=== PATIENT | male | born 1960 | race Caucasian/White ===

== ENCOUNTER 2018-09-13 13:16 | Emergency (ER) | payer BC ==
[2018-09-13 13:32] VITALS: BP 138/88
--- NOTE | 2018-09-13 13:51 | UC ---
Hand/Wrist HPI - HPI Summary HPI Summary: 58-year-old male presents with injury to his left middle finger. States he was using the finger to scrape some drywall putty off the floor and felt a sudden pop in the finger and since has not been able to fully extend the distal part of his finger. Mild pain especially with flexion. Denies numbness or tingling. - History Of Current Complaint Chief Complaint: UCUpperExtremity Stated Complaint: LEFT MIDDLE FINGER INJURY Time Seen by Provider: 09/13/18 13:31 Hx Obtained From: Patient Pain Intensity: 2 - Allergies/Home Medications Allergies/Adverse Reactions: Allergies Allergy/AdvReac Type Severity Reaction Status Date / Time No Known Allergies Allergy Verified 09/13/18 13:27 Home Medications: Home Medications Fluticasone-Salmeterol 250-50* [Advair Diskus 250-50*] 1 puff INH BID 09/13/18 [ History Confirmed 09/13/18] PMH/Surg Hx/FS Hx/Imm Hx Cardiovascular History: Hypertension Respiratory History: COPD GI/ History: Gastroesophageal Reflux - Surgical History Surgical History: Yes Surgery Procedure, Year, and Place: hernia repair at . tonsillectomy - Family History Known Family History: Positive: Non-Contributory - Social History Occupation: Employed Full-time Lives: With Family Alcohol Use: Occasionally Substance Use Type: Marijuana Smoking Status (MU): Never Smoked Tobacco - Immunization History Most Recent Influenza Vaccination: April 2015 Review of Systems All Other Systems Reviewed And Are Negative: Yes Constitutional: Positive: Negative Skin: Negative: Bruising Respiratory: Positive: Negative Cardiovascular: Positive: Negative Gastrointestinal: Positive: Negative Genitourinary: Positive: Negative Motor: Positive: Weakness Neurovascular: Negative: Decreased Sensation Musculoskeletal: Positive: Other: - See HPI Neurological: Positive: Negative Is Patient Immunocompromised?: No Physical Exam Triage Information Reviewed: Yes Appearance: Well-Appearing, No Pain Distress, Well-Nourished Vital Signs: Initial Vital Signs Temp 98.9 F 09/13/18 13:28 Pulse 91 09/13/18 13:28 Resp 16 09/13/18 13:28 BP 138/88 09/13/18 13:28 Pulse Ox 98 09/13/18 13:28 Vital Signs Reviewed: Yes Respiratory: Positive: Lungs clear, Normal breath sounds, No respiratory distress Cardiovascular: Positive: RRR, No Murmur, Pulses Normal, Brisk Capillary Refill Abdomen Description: Positive: Nontender, No Organomegaly, Soft. Negative: Distended, Guarding Bowel Sounds: Positive: Present Musculoskeletal: Positive: Other: - Tenderness over the dorsal aspect of the left middle finger over the extensor tendon. Unable to fully extend distal phalange. Pain with passive flexion of the distal phalange. No gross deformity. Sensation and circulation intact distally. Neurological: Positive: Alert, Muscle Tone Normal Skin: Negative: Significant Lesion(s) - Tenderness to the dorsal left finger over the extensor tendon. Patient unable to fully extend the distal phalange. Pain with passive flexion. No gross deformity. Sensation and circulation intact distally. Procedures - Splinting Left 3rd Digit Pre-Made Type: metal - finger splint Pre-Proc Neuro Vasc Exam: normal Post-Proc Neuro Vasc Exam: normal Diagnostics - Radiology No standard instances Radiology Interpretation Completed By: Radiologist Summary of Radiographic Findings: Patient Name: FRANCESCO LOBO Medical Record# : [id number]. Ordering Physician: Valentin Field NP Acct.#: [id number]. : 1960 Age: 58 Sex: M Location: [facility]. Exam Date: 133 ADM Status: REG ER. Order Information: FINGER LEFT MIDDLE. Accession Number: [id number]. CPT: 32539. INDICATION: Left middle finger injury. TECHNIQUE: 3 views of the left middle finger were obtained. FINDINGS: The finger is slightly flexed at the distal interphalangeal joint. The bones are. normal alignment. No fracture is seen. There is mild diffuse soft tissue swelling present. Joint spaces appear maintained. IMPRESSION: SOFT TISSUE SWELLING, NO FRACTURE IS SEEN. Hand/Wrist Course/Dx - Course Course Of Treatment: 58-year-old male presents with injury to his left middle finger. States he was using the finger to scrape some drywall putty off the floor and felt a sudden pop in the finger and since has not been able to fully extend the distal part of his finger. Mild pain especially with flexion. Denies numbness or tingling. Afebrile. VSS. Exam reveals adult male in no acute distress. Tenderness over the dorsal aspect of the left middle finger over the extensor tendon. Unable to fully extend distal phalange. Pain with passive flexion of the distal phalange. No gross deformity. Sensation and circulation intact distally. X-ray negative for fracture. Patient was placed in a finger splint. Recommending conservative treatment for flexor tendon injury. He is to follow up with orthopedic surgery within 5 days. - Differential Dx/Diagnosis Provider Diagnosis: Strain of extensor muscle, fascia and tendon of left middle finger at forearm level, initial encounter Discharge - Sign-Out/Discharge Documenting (check all that apply): Patient Departure All imaging exams completed and their final reports reviewed: Yes - Discharge Plan Condition: Stable Disposition: HOME Patient Education Materials: Tendon Rupture (ED) Referrals: Darren Sanches MD [Primary Care Provider] - Yehuda Yo MD [Medical Doctor] - 5 Days (Call for appointment.) Additional Instructions: The x-ray of your finger performed in the clinic today showed no evidence of fracture. I suspect that you have an injury to the extensor tendon of the finger. Take acetaminophen (Tylenol) or ibuprofen (Advil, Motrin) according to directions as needed for pain. Rest the finger. Wear the splint that was applied in the clinic. You may remove to shower but wear at all other times. Apply ice to the affected area for 15-20 minutes at least 4 times a day to help with pain and swelling. Keep the hand elevated at the level of the heart to help reduce swelling. Follow up with orthopedic surgery within 5 days for further evaluation. Call for appointment. - Billing Disposition and Condition Condition: STABLE Disposition: Home
== END 2018-09-13 14:06 | disposition home or self-care (01) ==
LOC: UCCORT 13:16
DX: S56.414A Strain of extensor muscle, fascia and tendon of left middle finger at forearm level, initial encounter (principal); I10 Essential (primary) hypertension; J44.9 Chronic obstructive pulmonary disease, unspecified; X58.XXXA Exposure to other specified factors, initial encounter; Y92.9 Unspecified place or not applicable
CPT/HCPCS: 73140; 99211; G0463